=== PATIENT | male | born 1995 | race Caucasian/White ===

== ENCOUNTER 2018-07-07 15:39 | Emergency (ER) | payer MEDICAID, OTHER ==
[2018-07-07 15:58] VITALS: O2SAT 98
[2018-07-07] MEDS ORDERED: Sodium Chloride 0.9% 1000 ML 1,000 ML IV STA (16:06)
[2018-07-07] MEDS ORDERED: TORAdol 30 mg Injection IV ONE (16:07)
[2018-07-07] MEDS ORDERED: CLINDAMYCIN-D5W 600 MG/50 ML*** 600 MG/50 ML BAG IV STA (16:07)
[2018-07-07] MEDS ORDERED: Sodium Chloride 0.9% 1000 ML 0 ML ONE (16:09)
[2018-07-07] MEDS ORDERED: TORAdol 30 mg Injection ONE ×2 (16:09→16:12)
[2018-07-07] MEDS ORDERED: CLINDAMYCIN-D5W 600 MG/50 ML*** 600 MG/50 ML BAG IV ONE (16:13)
[2018-07-07] MEDS ORDERED: Sodium Chloride 0.9% 1000 ML 1,000 ML ONE (16:14)
[2018-07-07 16:38] LABS: BASOPHIL % 0.3 % (0.0-0.4); Basophil (Absolute #) 0.04 (0-0.4); Eosinophil % 1.9 % (0.00-5.0); Eosinophil (Absolute #) 0.27 (0-0.5); Granulocytes % 78.9 % (36.0-66.0); Hematocrit 46.4 % (42-50); Hemoglobin 15.6 gm/dl (12.5-18.0); Lymphocyte (Absolute #) 1.69 (1.0-4.6); Lymphocytes % 11.9 % (24.0-44.0); Mean Cell Volume 88.7 fl (78-100); Mean Corpuscular Hemoglobin 29.8 pg (26-32); Mean Corpuscular Hgb Concent. 33.6 g/dl (32-36); Mean Platelet Volume 9.5 fl (6-9.5); Platelet Count 217 K/mm3 (150-450); Red Blood Count 5.23 M/mm3 (4.1-5.6); Red Cell Distribution Width 14.1 % (11.5-14.0); White Blood Count 14.2 K/mm3 (4.0-10.5)
--- NOTE | 2018-07-07 16:57 | ERPHSYRPT ---
- History of Present Illness Time Seen by Provider: 07/07/18 16:00 Source: patient Exam Limitations: clinical condition Patient Subjective Stated Complaint: pt reports he may have a spider bite on his right elbow. states it has been there approx one week, reports it has been draining intermittently. reports pain to the joint. Triage Nursing Assessment: pt is aox3, pupils perrl, afebrile, resps easy and non labored, radial pulses strong and equal, skin pink warm dry. redness and swelling noted the right elbow, no draining noted at this time. pt sensation and ROM intact. Physician History: PATIENT COMPLAINS OF PAIN, SWELLING WITH REDNESS BELOW HIS RIGHT ELBOW X 1 WEEK POSSIBLE ASSOCIATED WITH INSECT BITE. UNSURE OF FEVER OR CHILLS. STATES HE HAS EXPRESS DRAINAGE OUT OF WOUND PAST COUPLE OF DAYS. Occurred: last week Method of Injury: other (INSECT BITE) Quality: constant Severity of Pain-Max: mild Severity of Pain-Current: mild Extremities Pain Location: elbow: right Modifying Factors: Improves With: movement Associated Symptoms: none Allergies/Adverse Reactions: Penicillins Allergy (Intermediate, Verified 07/07/18 15:59) Hives Hx Tetanus, Diphtheria Vaccination/Date Given: Yes Hx Influenza Vaccination/Date Given: No Hx Pneumococcal Vaccination/Date Given: No Immunizations Up to Date: Yes - Review of Systems Constitutional: No Fever, No Chills Eyes: No Symptoms Ears, Nose, & Throat: No Symptoms Respiratory: No Symptoms, No Cough, No Dyspnea Cardiac: No Symptoms, No Chest Pain, No Edema, No Syncope Abdominal/Gastrointestinal: No Abdominal Pain, No Nausea, No Vomiting, No Diarrhea Genitourinary Symptoms: No Dysuria Musculoskeletal: Joint Redness, Joint Pain, Joint Swelling, No Back Pain, No Neck Pain Skin: No Rash Neurological: No Dizziness, No Focal Weakness, No Sensory Changes Psychological: No Symptoms Endocrine: No Symptoms All Other Systems: Reviewed and Negative - Past Medical History Pertinent Past Medical History: No Neurological History: No Pertinent History ENT History: No Pertinent History Cardiac History: No Pertinent History Respiratory History: No Pertinent History Endocrine Medical History: No Pertinent History Musculoskeletal History: No Pertinent History GI Medical History: No Pertinent History History: No Pertinent History Psycho-Social History: No Pertinent History Male Reproductive Disorders: No Pertinent History - Past Surgical History Past Surgical History: Yes Other Surgical History: r knee - Social History Smoking Status: Current every day smoker Exposure to second hand smoke: Yes Drug Use: none Patient Lives Alone: No - Nursing Vital Signs Nursing Vital Signs: Initial Vital Signs Temperature 98.3 F 07/07/18 15:50 Pulse Rate 94 H 07/07/18 15:50 Respiratory Rate 20 07/07/18 15:50 Blood Pressure 123/95 07/07/18 15:50 O2 Sat by Pulse Oximetry 98 07/07/18 15:50 Pain Scale Pain Intensity 4 - Physical Exam General Appearance: alert Eyes, Ears, Nose, Throat Exam: moist mucous membranes Abdominal Exam: No guarding Back Exam: No vertebral tenderness Elbow/Forearm Exam: soft tissue tenderness, swelling (THERE IS A 0.5 MM SCABED PUNCTURE WOUND OVER OLECRAN WITH SURROUNDING ERYTHRMA MEASURING 12CM X 6CM WITH WARMTH) DTR - Upper Extremity Exam: bicep (R): 2+, bicep (L): 2+, tricep (R): 2+, tricep (L): 2+ Neuro/Tendon Exam: normal sensation, normal motor functions Mental Status Exam: alert, oriented x 3, cooperative Skin Exam: normal color, warm, dry SpO2 Interpretation: normal SpO2: 98 Oxygen Delivery: Room Air Ordered Tests: Active Orders 24 hr Category Date Time Status IV Insertion STAT Care 07/07/18 16:06 Active BLOOD CULTURE Stat Lab 07/07/18 16:30 Received CBC W DIFF Stat Lab 07/07/18 16:20 Completed Medication Summary Generic Name Dose Route Start Last Admin Trade Name Freq PRN Reason Stop Dose Admin Sodium Chloride 1,000 mls @ 999 mls/hr 07/07/18 16:06 07/07/18 16:31 Sodium Chloride 0.9% 1000 Ml IV 07/07/18 17:06 999 mls/hr .Q1H1M STA Administration Discontinued Medications Generic Name Dose Route Start Last Admin Trade Name Freq PRN Reason Stop Dose Admin Clindamycin HCl/Dextrose 600 mg in 50 mls @ 100 mls/hr 07/07/18 16:07 16:32 Clindamycin-D5w 600 Mg/50 Ml IV 07/07/18 16:36 50 ml/hr STAT STA 50 mls/hr Administration Sodium Chloride Confirm 07/07/18 16:09 Sodium Chloride 0.9% 1000 Ml Administered 07/07/18 16:10 Dose 1,000 mls @ ud .ROUTE .STK-MED ONE Clindamycin HCl/Dextrose Confirm 07/07/18 16:13 Clindamycin-D5w 600 Mg/50 Ml Administered 07/07/18 16:14 Dose 600 mg in 50 mls @ ud IV .STK-MED ONE Sodium Chloride Confirm 07/07/18 16:14 Sodium Chloride 0.9% 1000 Ml Administered 07/07/18 16:15 Dose 1,000 mls @ ud .ROUTE .STK-MED ONE Ketorolac Tromethamine 30 mg 07/07/18 16:07 07/07/18 16:32 Toradol 30 Mg Injection IV 07/07/18 16:08 30 mg STAT ONE Administration Ketorolac Tromethamine Confirm 07/07/18 16:09 Toradol 30 Mg Injection Administered 07/07/18 16:10 Dose 30 mg .ROUTE .STK-MED ONE Ketorolac Tromethamine Confirm 07/07/18 16:12 Toradol 30 Mg Injection Administered 07/07/18 16:13 Dose 30 mg .ROUTE .STK-MED ONE Lab/Rad Data: Laboratory Result Diagrams 07/07/18 16:20 Laboratory Results 07/07/18 Range/Units 16:20 WBC 14.2 H (4.0-10.5) K/mm3 RBC 5.23 (4.1-5.6) M/mm3 Hgb 15.6 (12.5-18.0) gm/dl Hct 46.4 (42-50) % MCV 88.7 (78-100) fl MCH 29.8 (26-32) pg MCHC 33.6 (32-36) g/dl RDW 14.1 H (11.5-14.0) % Plt Count 217 (150-450) K/mm3 MPV 9.5 (6-9.5) fl Gran % 78.9 H (36.0-66.0) % Eos # (Auto) 0.27 (0-0.5) Absolute Lymphs (auto) 1.69 (1.0-4.6) Absolute Monos (auto) 1.00 (0.0-1.3) Lymphocytes % 11.9 L (24.0-44.0) % Monocytes % 7.0 (0.0-12.0) % Eosinophils % 1.9 (0.00-5.0) % Basophils % 0.3 (0.0-0.4) % Absolute Granulocytes 11.20 H (1.4-6.9) Basophils # 0.04 (0-0.4) - Progress Progress: pain not gone completely Progress Note: 07/07/18 16:57 CLINDAMYCIN 600MG IVPB AFTER 2 SETS OF BLOOD CULTURES OBTAINED, TORADOL 30MG IV Counseled pt/family regarding: lab results, diagnosis - Departure Time of Disposition: 16:13 Departure Disposition: Home Clinical Impression: CELLULITIS LEFT ELBOW Condition: Stable Critical Care Time: No Additional Instructions: ANTIBIOTIC CLINDAMYCIN 300LMG EVERY 6 HOURS FOR 10 DAYS. TORADOL 10MG EVERY 6 HOURS NEEDED FOR PAIN. TYLENOL OR MOTRIN NEEDED FOR PAIN. CONSULT YOUR PRIMARY CARE PROVIDER FOR FOLLOWUP IN 1 WEEK. RETURN TO EMERGENCY FOR INCREASING SWELLING OR REDNESS. Prescriptions: Ketorolac Tromethamine [Toradol] 10 mg PO Q6HPRN PRN #20 tablet PRN Reason: Pain Clindamycin HCl 300 mg PO QID #40 capsule
[2018-07-07 17:13] VITALS: BP 117/60; PULSE 71
== END 2018-07-07 17:15 | disposition home or self-care (01) ==
LOC: ED 15:39
DX: L03.114 Cellulitis of left upper limb (principal); T63.301A Toxic effect of unspecified spider venom, accidental (unintentional), initial encounter
CPT/HCPCS: 36000; 36415; 85025; 87040; 96360; 96365; 96374; 99284; J1885

== ENCOUNTER 2019-04-01 02:03 | Emergency (ER) | payer OTHER ==
--- NOTE | 2019-04-01 02:45 | ERPHSYRPT ---
- History of Present Illness Time Seen by Provider: 04/01/19 02:39 Source: patient Exam Limitations: no limitations Patient Subjective Stated Complaint: martell got into argument with friend and cut his ear on vanity Triage Nursing Assessment: pt is alert and orietnedx3, able to ambulate by self , gait is steady, pupils perrla2, patient pulses equal bialteral radius, extensive laceratiobn to left earouter perimeter, Physician History: Pt states, broken mirror accidentally cut his left ear tonight at home. He denies other injury or complaints, except minor laceration on his left knee. Timing/Duration: abrupt onset Severity: mild ENT Location: ear (L) Prearrival Treatment: no prearrival treatment Modifying Factors: Improves With: nothing Associated Symptoms: denies symptoms Allergies/Adverse Reactions: Penicillins Allergy (Intermediate, Verified 07/07/18 15:59) Hives Hx Tetanus, Diphtheria Vaccination/Date Given: Yes Hx Influenza Vaccination/Date Given: No Hx Pneumococcal Vaccination/Date Given: No Immunizations Up to Date: Yes - Review of Systems Constitutional: No Symptoms Ears, Nose, & Throat: Other (left ear lobe laceration) Respiratory: No Symptoms Cardiac: No Symptoms Abdominal/Gastrointestinal: No Symptoms Skin: No Symptoms Neurological: No Symptoms All Other Systems: Reviewed and Negative - Past Medical History Pertinent Past Medical History: No Neurological History: No Pertinent History ENT History: No Pertinent History Cardiac History: No Pertinent History Respiratory History: No Pertinent History Endocrine Medical History: No Pertinent History Musculoskeletal History: No Pertinent History GI Medical History: No Pertinent History History: No Pertinent History Psycho-Social History: No Pertinent History Male Reproductive Disorders: No Pertinent History - Past Surgical History Past Surgical History: Yes Other Surgical History: r knee - Social History Smoking Status: Never smoker Exposure to second hand smoke: No Drug Use: none Patient Lives Alone: No - Nursing Vital Signs Nursing Vital Signs: Initial Vital Signs Temperature 98.9 F 04/01/19 02:04 Pulse Rate 84 04/01/19 02:04 Respiratory Rate 18 04/01/19 02:04 Blood Pressure 151/90 04/01/19 02:04 O2 Sat by Pulse Oximetry 99 04/01/19 02:04 Pain Scale Pain Intensity 7 - Physical Exam General Appearance: no apparent distress Eye Exam: bilateral eye: PERRL Ear Exam: left ear: other (left ear lobe: 3 cm longitudinal laceration of the posterior edge of the ear lobe, flap formed with a 3-4 mm stem from the caudal part of the ear lobe, no severe bleeding, no obvious cartilage exposure seen. ) Nasal Exam: normal inspection Throat Exam: normal Neck Exam: normal inspection, non-tender Cardiovascular/Respiratory Exam: chest non-tender, normal breath sounds, heart sounds normal Abdominal Exam: non-tender Neurologic Exam: alert, oriented x 3, cooperative, normal mood/affect Skin Exam: normal color, warm, dry, other (1.5 cm superficial, oval shaped, flap laceration of the left anterior knee, tangential cut, no severe bleeding. ) SpO2 Interpretation: normal SpO2: 99 O2 Delivery: Room Air Procedures - Laceration/Wound Repair Left Ear Wound Location: Left, face Wound Length (cm): 3 Wound's Depth, Shape: superficial, flap Wound Explored: clean Irrigated: Yes Hibiclens Prep: No Anesthesia: local, 1% Lidocaine Volume Anesthetic (ccs): 4 Wound Repaired With: sutures Suture Size/Type: 4-0, ethilon Number of Sutures: 7 Layer Closure?: No Sterile Dressing Applied?: Yes Splint Applied?: No Sling Applied?: No Progress: 04/01/19 02:45 laceration of the left anterior knee: pt requested steri strips, wound cleansed by nurse, and successfully closed with steri strips. - Course Nursing assessment & vital signs reviewed: Yes - Progress Progress: improved Progress Note: 04/01/19 02:46 Pt tolerated sutures well, will discharge him on Bactrim PO, advised to apply ice to swelling, and follow up with his physician in 2-3 days, removal of the sutures after 7 days. Counseled pt/family regarding: diagnosis, need for follow-up - Departure Departure Disposition: Home Clinical Impression: Laceration of ear Qualifiers: Encounter type: initial encounter Laterality: left Qualified Code(s): S01.312A - Laceration without foreign body of left ear, initial encounter Condition: Stable Critical Care Time: No Referrals: DOCTOR,NO FAMILY [Primary Care Provider] - Instructions: Laceration Repair With Stitches (DC) Additional Instructions: Cleanse wound daily with saline and change sterile dressings, follow up with your pohysician in 2-3 days, removal of the sutures after 7 days, return if severe pain, swelling, drainage or fever> 102 F! Prescriptions: Hydrocodone/APAP 5-325 Tab^^^ [[place] 5-325 Tablet^^^] 1 tab PO Q6HPRN PRN #5 tablet MDD 6 PRN Reason: Pain Sulfamethoxazole/Trimethoprim [Bactrim Ds Tablet] 1 each PO BID #14 tablet
[2019-04-01] MEDS ORDERED: BACTRIM DS TABLET PO STA (02:51)
[2019-04-01] MEDS ORDERED: NORCO 5/325 MG PO ONE (02:51)
[2019-04-01] MEDS ORDERED: NORCO 5/325 MG ONE (03:07)
[2019-04-01] MEDS ORDERED: BACTRIM DS TABLET PO ONE (03:07)
[2019-04-01 03:25] VITALS: BP 161/82; PULSE 83; O2SAT 96
== END 2019-04-01 03:10 | disposition home or self-care (01) ==
LOC: ED 02:03
DX: S01.312A Laceration without foreign body of left ear, initial encounter (principal); W25.XXXA Contact with sharp glass, initial encounter; Y92.009 Unspecified place in unspecified non-institutional (private) residence as the place of occurrence of the external cause
CPT/HCPCS: 12013; 99283; A9270-GY